=== PATIENT | female | born 1950 | race Caucasian/White ===

== ENCOUNTER 2017-02-27 15:48 | Emergency (ER) | payer OTHER ==
[~2017-02-27] VITALS: Ht 162.6 cm; Wt 79.4 kg
[~2017-02-27 15:48] MED LIST: AMLODIPINE BES2.5 MG ORAL; ASPIR 8181 MG ORAL; CIPROFLOXACIN500 M2 ORAL; CO Q-1010 MG PO; IBUPROFEN600 MG ORAL; LEVAQUIN750 MG ORAL; NEURONTIN600 MG ORAL; NORCO 5-325 TA1 EACH ORAL; PHENAZOPYRIDIN200 MG ORAL; POTASSIUM99 M2 PO; SIMVASTATIN20 MG ORAL
--- NOTE | 2017-02-27 16:02 | Emergency Room Report ---
History of Present Illness General Chief Complaint: Upper Extremity Injury Source: Patient Present Illness HPI Patient presents with complaints of right pain to the base of the thumb Patient reports that she woke up this morning with the swelling and pain Denies any obvious trauma Denies any other fevers or other rash Doesn't recall any flaring of any of her other joints previously is unaware of any arthritis pain is worsened with full extension of the thumb There is some mild erythema to it as well Patient feel some radiation to the mid forearm Allergies: Coded Allergies: PENICILLINS (Verified Allergy, Unknown, 01/28/15) Patient History Past Medical History: see triage record Pertinent Family History: none Reviewed Nursing Documentation: PMH: Agreed, PSxH: Agreed Nursing Documentation-PMH Past Medical History: No History, Except For Hx Cardiac Problems: Yes - parathyroidectomy and hypercalcemia Hx Hypertension: Yes Hx Cancer: Yes - skin, recurrent Review of Systems All Other Systems: negative except mentioned in HPI Physical Exam Vital Signs Date Time Temp Pulse Resp B/P (MAP) Pulse Ox O2 Delivery O2 Flow Rate FiO2 02/27/17 15:54 98.1 68 16 154/96 94 Room Air Sp02 EP Interpretation: reviewed, normal General Appearance: well appearing, no apparent distress Head: normocephalic, atraumatic Eyes: bilateral eye PERRL, bilateral eye EOMI ENT: hearing grossly normal, normal pharynx Neck: full range of motion Musculoskeletal: other - There is some swelling noted to the base of the right thumb, associated with some mild erythema, patient is able to approximate appropriately, neurovascularly intact Neurologic: alert, oriented x3 Skin: other - as above Lymphatic: no adenopathy Procedures Splinting Splinting : Consent: Verbal Location: right hand Pre-Made Type: velcro Splint: thumb spica Pre-Proc Neuro Vasc Exam: normal Post-Proc Neuro Vasc Exam: normal Patient Tolerated: Well Complications: None Medical Decision Making Diagnostic Impression: Primary Impression: Arthralgia Additional Impression: Tendonitis ER Course Multiple differentials considered including but not limited to gout, arthritis, rheumatoid, septic joint Patient's x-ray shows severe arthritic changes at the base of the thumb patient was placed into a splint and requires close followup Other X-Ray Diagnostic Results Other X-Ray Diagnostic Results : X-Ray ordered: right hand # of Views/Limited Vs Complete: 3 View Indication: Pain EP Interpretation: Yes Interpretation: no dislocation, no soft tissue swelling, no fractures, other - arthritic changes Impression: No acute disease Electronically Signed by: Kary Jasmine DO Last Vital Signs Date Time Temp Pulse Resp B/P (MAP) Pulse Ox O2 Delivery O2 Flow Rate FiO2 02/27/17 15:54 98.1 68 16 154/96 94 Room Air Status: improved Disposition: HOME, SELF-CARE Condition: Improved Scripts Ibuprofen* (MOTRIN*) 600 Mg Tablet 600 MG ORAL Q8H Y for For Pain, #20 TAB 0 Refills Prov: KARY JASMINE D.O. 02/27/17 Additional Instructions: Patient is provided with the discharge instructions notified to follow up with primary doctor in the next 2-3 days otherwise return to the er with any worsening symptoms. Please note that this report is being documented using [employer] technology. This can lead to erroneous entry secondary to incorrect interpretation by the dictating instrument. KARY JASMINE D.O. Feb 27, 2017 16:02
[2017-02-27] MEDS ORDERED: IBUPROFEN600 MG ORAL (17:07)
[2017-02-27 17:13] VITALS: BP 155/96
[2017-02-27 17:15] VITALS: BP 155/96
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
== END 2017-02-27 17:15 | disposition home or self-care (01) ==
LOC: EMR 17:15
DX: M79.641 Pain in right hand (principal); M77.9 Enthesopathy, unspecified; Z85.828 Personal history of other malignant neoplasm of skin; I10 Essential (primary) hypertension; Z88.0 Allergy status to penicillin
CPT/HCPCS: 29260; 99283

== ENCOUNTER 2017-04-03 15:00 | Emergency (ER) | payer OTHER ==
[~2017-04-03] VITALS: Ht 162.6 cm; Wt 79.4 kg
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
[2017-04-03 16:08] VITALS: BP 147/91
[2017-04-03] MEDS ORDERED: Excedrin Migraine tab ORAL ONE (17:15)
[2017-04-03] MEDS ORDERED: ZOFRAN4 M3 ORAL (17:23)
[2017-04-03] MEDS ORDERED: IBUPROFEN400 MG ORAL (17:23)
[2017-04-03] MEDS ORDERED: ROBAXIN-750750 MG PO (17:23)
[2017-04-03 17:45] VITALS: BP 145/90
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
== END 2017-04-03 17:47 | disposition home or self-care (01) ==
LOC: EMR 15:35
DX: S16.1XXA Strain of muscle, fascia and tendon at neck level, initial encounter (principal); R51 Headache; Z88.0 Allergy status to penicillin; I10 Essential (primary) hypertension; Z85.828 Personal history of other malignant neoplasm of skin; V49.9XXA Car occupant (driver) (passenger) injured in unspecified traffic accident, initial encounter; Y92.410 Unspecified street and highway as the place of occurrence of the external cause
CPT/HCPCS: 70450; 72125; 99284

== ENCOUNTER 2017-07-06 11:12 | Emergency (ER) | payer OTHER ==
[~2017-07-06] VITALS: Ht 160 cm; Wt 81.6 kg
[~2017-07-06 11:12] MED LIST changes: +IBUPROFEN400 MG ORAL; +ROBAXIN-750750 MG PO; +ZOFRAN4 M3 ORAL
[2017-07-06] MEDS ORDERED: XARELTO10 MG ORAL (12:42)
--- NOTE | 2017-07-06 12:46 | Emergency Room Report ---
History of Present Illness General Chief Complaint: Lower Extremity Injury Source: Patient Present Illness HPI 67-year-old female, presenting with left leg pain, for one week, patient states that she just recently had surgery for her varicose veins. Complaining of redness to her left inner thigh. No fever no chills Allergies: Coded Allergies: PENICILLINS (Verified Allergy, Unknown, 01/28/15) Patient History Past Medical History: see triage record Past Surgical History: none Pertinent Family History: none Last Menstrual Period: na Reviewed Nursing Documentation: PMH: Agreed, PSxH: Agreed Nursing Documentation-PMH Past Medical History: No History, Except For Hx Cardiac Problems: Yes - parathyroidectomy and hypercalcemia Hx Hypertension: Yes Hx Cancer: Yes - skin, recurrent Review of Systems All Other Systems: negative except mentioned in HPI Physical Exam Vital Signs Date Time Temp Pulse Resp B/P (MAP) Pulse Ox O2 Delivery O2 Flow Rate FiO2 07/06/17 11:22 97.8 77 18 130/77 96 Room Air 97.9 Sp02 EP Interpretation: reviewed, normal General Appearance: normal inspection, well appearing, no apparent distress, alert, GCS 15, non-toxic Head: normocephalic, atraumatic Eyes: bilateral eye normal inspection, bilateral eye PERRL, bilateral eye EOMI ENT: normal ENT inspection, normal pharynx, normal voice, moist mucus membranes Neck: normal inspection, full range of motion, supple Respiratory: normal inspection, lungs clear, normal breath sounds, no respiratory distress, no retraction, no wheezing, speaking full sentences, chest symmetrical Cardiovascular #1: normal inspection, regular rate, rhythm, no edema, normal capillary refill Cardiovascular #2: 2+ radial (R), 2+ radial (L) Gastrointestinal: normal inspection, non tender, soft, non-distended, no guarding Musculoskeletal: other - Left inner thigh with palpable varicose veins, tender to palpation, some erythema, along entire leg Neurologic: normal inspection, alert, oriented x3, responsive, motor strength/ tone normal, sensory intact, normal gait, speech normal Psychiatric: normal inspection, judgement/insight normal, memory normal Skin: normal inspection, normal color, no rash, warm/dry, well hydrated, normal turgor Medical Decision Making Diagnostic Impression: Primary Impression: DVT (deep venous thrombosis) Additional Impression: Superficial thrombophlebitis ER Course 67-year-old female, with left leg pain after varicose vein surgery DDX: Superficial thrombophlebitis/DVT Plan: Vascular study ER course: Patient has remained stable during ED stay. Vascular study is positive for a clot along the greater saphenous vein Disposition: Patient is to be discharged to home. Prescriptions given are XARELTO Patient is instructed to not take any blood thinners, including aspirin or Motrin, or any other anticoagulants. Patient is given a 10 day supply, is instructed to follow-up with her doctor for a refill within 5 days of the medication for a total 45 days. Patient is also told to repeat her ultrasound with her doctor Patient is instructed to follow up with their primary care doctor within 5 days. Patient is also told of the significant side effects that can occur with Xarelto including increased bleeding, she verbalized understanding Please note that this Emergency Department Report was dictated using [employer] production supervisor technology software, occasionally this can lead to erroneous entry secondary to interpretation by the dictation equipment CT/MRI/US Diagnostic Results CT/MRI/US Diagnostic Results : Imaging Test Ordered: VASCULAR STUDY Impression thrombosis of greater saphenous vein throughout entire leg Last Vital Signs Date Time Temp Pulse Resp B/P (MAP) Pulse Ox O2 Delivery O2 Flow Rate FiO2 07/06/17 11:22 97.8 77 18 130/77 96 Room Air 97.9 Disposition: HOME, SELF-CARE Condition: Improved Scripts Rivaroxaban (XARELTO*) 10 Mg Tablet 10 MG ORAL DAILY for 10 Days, #10 TAB 0 Refills Prov: Essie Hairston M.D. 07/06/17 Patient Instructions: Deep Vein Thrombosis Additional Instructions: YOU HAVE THROMBOSIS OF YOUR GREATER SAPHENOUS VEIN PLEASE START ANTICOAGULATION PLEASE FOLLOW UP WITH YOUR DOCTOR NO LATER THAN 5 DAYS TO CONTINUE ANTICOAGULATION AND REFILL YOUR MEDICATION AND RE-DO YOUR ULTRASOUND PLEASE DO NOT TAKE ANY OTHER BLOOD THINNERS, ASPIRIN, OR MOTRIN Essie Hairston M.D. Jul 06, 2017 12:45
[2017-07-06 14:11] VITALS: BP 130/77
== END 2017-07-06 13:00 | disposition home or self-care (01) ==
LOC: EMR 11:49
DX: I82.812 Embolism and thrombosis of superficial veins of left lower extremity (principal); I10 Essential (primary) hypertension; Z85.828 Personal history of other malignant neoplasm of skin; Z88.0 Allergy status to penicillin
CPT/HCPCS: 93971; 99284

== ENCOUNTER 2018-06-01 16:12 | Emergency (ER) | payer MEDICARE, OTHER ==
[~2018-06-01] VITALS: Ht 157.5 cm; Wt 72.6 kg
[~2018-06-01 16:12] MED LIST changes: +XARELTO10 MG ORAL
[2018-06-01 16:22] VITALS: BP 149/94
--- NOTE | 2018-06-01 16:32 | NUR ---
ED Nurse Note: Pt came in due to abd pain on and off for months. Denies N/V/D. Pt tates she sometimes have urinary frequency. Pt AAO x4, ambulates with steday gait. VSS.
--- NOTE | 2018-06-01 16:43 | Emergency Room Report ---
History of Present Illness General Chief Complaint: Abdominal Pain Source: Medical Record Present Illness HPI 68-year-old female patient presents the ER complaining of abdominal pain for the past few months. Reports history of similar symptoms in the past, states were intermittent however they have been constant recently. Reports intermittent pain with urinating during this time. Denies blood in urine. Denies vaginal discharge. Reports suprapubic abdominal pain bilaterally and right-sided flank pain. Reports able to pass flatus. Denies blood in stool. Denies vomiting or diarrhea. States has not taking medication for relief of symptoms. Denies fever, chest pain or shortness of breath. Reports history of kidney stones. Allergies: Coded Allergies: PENICILLINS (Verified Allergy, Unknown, 01/28/15) Patient History Past Medical History: see triage record Reviewed Nursing Documentation: PMH: Agreed; PSxH: Agreed Nursing Documentation-PMH Past Medical History: No History, Except For Hx Cardiac Problems: Yes - parathyroidectomy and hypercalcemia Hx Hypertension: Yes Hx Cancer: Yes - skin, recurrent Review of Systems All Other Systems: negative except mentioned in HPI Physical Exam Vital Signs Date Time Temp Pulse Resp B/P (MAP) Pulse Ox O2 Delivery O2 Flow Rate FiO2 06/01/18 16:22 98.2 80 18 149/94 95 Room Air Sp02 EP Interpretation: reviewed, normal General Appearance: well appearing, no apparent distress, alert, GCS 15, non- toxic Head: normocephalic, atraumatic Eyes: bilateral eye normal inspection, bilateral eye PERRL ENT: hearing grossly normal, normal pharynx, no angioedema, normal voice, uvula midline, moist mucus membranes Neck: full range of motion Respiratory: lungs clear, normal breath sounds, no rhonchi, no respiratory distress, no accessory muscle use, no wheezing, speaking full sentences Cardiovascular #1: regular rate, rhythm, no edema Gastrointestinal: normal bowel sounds, soft, no mass, non-distended, no guarding, no rebound, tenderness - Suprapubic bilaterally Genitourinary: no CVA tenderness Musculoskeletal: back normal, digits/nails normal, gait/station normal, normal range of motion, non-tender Neurologic: alert, oriented x3, responsive, motor strength/tone normal, sensory intact Psychiatric: mood/affect normal Skin: no rash Medical Decision Making PA Attestation Dr. Hairston is my supervising Physician whom patient management has been discussed with. Diagnostic Impression: Primary Impression: UTI (urinary tract infection) Additional Impression: Abdominal pain ER Course Pt. presents to the ED c/o abdominal pain and vomiting. Ddx considered but are not limited to UTI, cholelithiasis, cholecystitis, pancreatitis, appendicitis, diverticulitis, constipation, hydronephrosis, nephrolithiasis. Vital signs: are WNL, pt. is afebrile ORDERS: CBC, CMP, Lipase, UA, CT abdomen pelvis, and medication. ER COURSE: CBC and CMP Unremarkable other than mildly elevated BUN. No elevation WBCs or LFTs. Lipase WNL UA shows elevated WBCs and many bacteria, likely UTI, will treat with antibiotics. Take Tylenol for pain symptoms. Discuss results with patient CT abdomen and pelvis No appendicitis, SBO, or diverticulitis. No hydronephrosis or ureteral calculus. Unremarkable gallbladder and pancreas. Dilation of left proximal GSV, incompletely visualized. Discuss results with the patient. Provided patient with copy of results. Instructed patient to followup with PCP and discuss results of report with patient, discuss need for further treatment and referral. DISCHARGE: At this time pt. is stable for d/c to home. Patient resting comfortably, in no acute distress, nontoxic appearing, talking without difficulty. Rx provided to patient. Patient to take medications as instructed Will provide with patient care instructions and any necessary prescriptions. Care plan and follow-up instructions provided. Patient instructed to follow-up with primary care provider in 3 - 5 days. Patient questions asked and answered. Patient reports understanding and agreement to treatment plan. ER precautions given. Patient instructed to return to ER immediately for any new or worsening of symptoms including but not limited to increasing SOB, persistent fever, worsening of pain symptoms, intractable vomiting, blood in stool, urine, and/or emesis. - Please note that this Emergency Department Report was dictated using [employer] developer technology software, occasionally this can lead to erroneous entry secondary to interpretation by the dictation equipment. Labs Test 06/01/18 16:46 06/01/18 17:27 Urine Color Pale yellow Urine Appearance Slightly cloudy Urine pH 5 (4.5-8.0) Urine Specific [place] 1.020 (1.005-1.035) Urine Protein Negative (NEGATIVE) Urine Glucose (UA) Negative (NEGATIVE) Urine Ketones Negative (NEGATIVE) Urine Blood 2+ (NEGATIVE) Urine Nitrite Negative (NEGATIVE) Urine Bilirubin Negative (NEGATIVE) Urine Urobilinogen Normal MG/DL (0.0-1.0) Urine Leukocyte Esterase 1+ (NEGATIVE) Urine RBC 0-2 /HPF (0 - 2) Urine WBC 10-15 /HPF (0 - 2) Urine Squamous Epithelial Cells Few /LPF (NONE/OCC) Urine Bacteria Many /HPF (NONE) White Blood Count 9.0 K/UL (4.8-10.8) Red Blood Count 5.08 M/UL (4.20-5.40) Hemoglobin 13.9 G/DL (12.0-16.0) Hematocrit 42.8 % (37.0-47.0) Mean Corpuscular Volume 84 FL (80-99) Mean Corpuscular Hemoglobin 27.4 PG (27.0-31.0) Mean Corpuscular Hemoglobin Concent 32.5 G/DL (32.0-36.0) Red Cell Distribution Width 12.6 % (11.6-14.8) Platelet Count 248 K/UL (150-450) Mean Platelet Volume 6.9 FL (6.5-10.1) Neutrophils (%) (Auto) 60.2 % (45.0-75.0) Lymphocytes (%) (Auto) 28.7 % (20.0-45.0) Monocytes (%) (Auto) 8.3 % (1.0-10.0) Eosinophils (%) (Auto) 1.9 % (0.0-3.0) Basophils (%) (Auto) 0.8 % (0.0-2.0) Sodium Level 140 MMOL/L (136-145) Potassium Level 3.7 MMOL/L (3.5-5.1) Chloride Level 105 MMOL/L (98-107) Carbon Dioxide Level 24 MMOL/L (21-32) Anion Gap 11 mmol/L (5-15) Blood Urea Nitrogen 20 mg/dL (7-18) Creatinine 0.9 MG/DL (0.55-1.30) Estimat Glomerular Filtration Rate > 60 mL/min (>60) Glucose Level 102 MG/DL (74-106) Calcium Level 9.7 MG/DL (8.5-10.1) Total Bilirubin 0.4 MG/DL (0.2-1.0) Aspartate Amino Transf (AST/SGOT) 16 U/L (15-37) Alanine Aminotransferase (ALT/SGPT) 18 U/L (12-78) Alkaline Phosphatase 117 U/L (46-116) Total Protein 7.9 G/DL (6.4-8.2) Albumin 3.7 G/DL (3.4-5.0) Globulin 4.2 g/dL Albumin/Globulin Ratio 0.9 (1.0-2.7) Lipase 173 U/L (73-393) CT/MRI/US Diagnostic Results CT/MRI/US Diagnostic Results : Imaging Test Ordered: CT abdomen pelvis Impression No appendicitis, SBO, or diverticulitis. No hydronephrosis or ureteral calculus. Unremarkable gallbladder and pancreas. Dilation of left proximal GSV, incompletely visualized. Last Vital Signs Date Time Temp Pulse Resp B/P (MAP) Pulse Ox O2 Delivery O2 Flow Rate FiO2 06/01/18 16:22 98.2 80 18 149/94 95 Room Air Status: improved Disposition: HOME, SELF-CARE Condition: Stable Scripts Cephalexin* (KEFLEX*) 500 Mg Capsule 500 MG ORAL EVERY 12 HOURS, #14 CAP 0 Refills Prov: Deuce Parker 06/01/18 Patient Instructions: Abdominal Pain, Adult, Urinary Tract Infection, Easy-to- Read Additional Instructions: Followup with primary care provider and followup with and./or OBGYN. Drink plenty of fluids. Take medications as directed. Take Tylenol for pain symptoms. Patient questions asked and answered. ER precautions given, patient instructed to return to ER immediately for any new or worsening of symptoms. Deuce Parker Jun 01, 2018 16:43
[2018-06-01] MEDS ORDERED: Isovue-300 100ml vial INJ PRN (16:45)
[2018-06-01] MEDS ORDERED: Acetaminophen 500mg (ES) tab ORAL ONE (16:45)
--- NOTE | 2018-06-01 17:05 | NUR ---
ED Nurse Note: Blood collected and sent.
[2018-06-01] MEDS: Lidocaine HCl 2% Jelly 6ml Tube TOPIC ONE ×2 (17:20→17:21)
--- NOTE | 2018-06-01 17:22 | NUR ---
ED Nurse Note: Lidocaine Jelly returned to pyxis.
[2018-06-01 17:30] LABS: APPEARANCE,URINE SLIGHTLY CLOUDY; BILIRUBIN, URINE NEGATIVE (NEGATIVE); COLOR,URINE PALE YELLOW; GLUCOSE, URINE (UA) NEGATIVE (NEGATIVE); KETONES,URINE NEGATIVE (NEGATIVE); LEUKOCYTE ESTERASE ,URINE 1+ (NEGATIVE); NITRITE,URINE NEGATIVE (NEGATIVE); PH,URINE 5 (4.5-8.0); PROTEIN,URINE NEGATIVE (NEGATIVE); UROBILINOGEN,URINE NORMAL MG/DL (0.0-1.0)
[2018-06-01 17:47] LABS: BASOPHILS % (AUTO) 0.8 % (0.0-2.0); EOSINOPHILS % (AUTO) 1.9 % (0.0-3.0); HEMATOCRIT 42.8 % (37.0-47.0); HEMOGLOBIN 13.9 G/DL (12.0-16.0); LYMPHOCYTES % (AUTO) 28.7 % (20.0-45.0); MEAN CORPUSCULAR VOLUME 84 FL (80-99); MONOCYTES % (AUTO) 8.3 % (1.0-10.0); NEUTROPHILS % (AUTO) 60.2 % (45.0-75.0); PLATELET COUNT 248 K/UL (150-450); RED BLOOD COUNT 5.08 M/UL (4.20-5.40); RED CELL DISTRIBUTION WIDTH 12.6 % (11.6-14.8)
[2018-06-01 17:59] LABS: ANION GAP 11 mmol/L (5-15); BLOOD UREA NITROGEN 20 mg/dL (7-18); CALCIUM 9.7 MG/DL (8.5-10.1); CARBON DIOXIDE 24 MMOL/L (21-32); CHLORIDE 105 MMOL/L (98-107); CREATININE 0.9 MG/DL (0.55-1.30); POTASSIUM 3.7 MMOL/L (3.5-5.1); SODIUM 140 MMOL/L (136-145)
[2018-06-01 18:04] LABS: ALANINE AMINOTRANSFERASE 18 U/L (12-78); ALBUMIN 3.7 G/DL (3.4-5.0); ALBUMIN/GLOBULIN RATIO 0.9 (1.0-2.7); ALKALINE PHOSPHATASE 117 U/L (46-116); ASPARTATE AMINO TRANSFERASE 16 U/L (15-37); BILIRUBIN,TOTAL 0.4 MG/DL (0.2-1.0)
[2018-06-01] MEDS ORDERED: CEPHALEXIN500 MG ORAL (19:02)
[2018-06-01 19:09] VITALS: BP 139/80
--- NOTE | 2018-06-01 19:09 | NUR ---
ED Nurse Note: Pt cleared by Health Care Provider for discharge. DC instructions/prescriptions given and explained to pt and verbalized understanding of teachings. All medical devices such as ID band/IV removed. Pt AAO x4, ambulatory and left with all personal belongings.
--- NOTE | 2018-06-02 17:38 | Diagnostic Imaging Report ---
Clinical Indication: Abdominal pain Technique: No oral contrast utilized, per emergency room physician request IV administration nonionic contrast. Venous phase spiral acquisition obtained through the abdomen and pelvis. Multiplanar reconstructions were generated. Total dose length product 1010.56 mGycm. CTDIvol(s) 17.93 mGy. Dose reduction achieved using automated exposure control Comparison: none Findings: There is colonic diverticulosis. No evidence of diverticulitis. The appendix is not visualized, but no findings to suggest acute appendicitis are evident. No small bowel distention. No free or loculated intraperitoneal gas or fluid. There is a small fat-containing umbilical hernia. The distal esophagus and stomach are unremarkable there is a duodenal diverticulum. The liver, gallbladder, bile ducts, pancreas, spleen, adrenals are unremarkable. The left kidney demonstrates subcentimeter low-attenuation lesions which are too small to characterize, as well as a probable small angiomyolipoma. There may be some parapelvic cysts on the left. No renal or ureter calculi, hydronephrosis, hydroureter. No pelvic mass or adenopathy. A pessary ring is seen within the posterior vagina. The included lung bases demonstrate minimal basilar atelectasis, are otherwise clear. The bones demonstrate degenerative spondylosis changes. There is a a large venous varix in the left groin, presumably involving the greater saphenous vein although incompletely included Impression: No acute process Colonic diverticulosis Varicose dilatation of the downstream left greater saphenous vein, incompletely visualized Subcentimeter low-attenuation left renal lesions, too small to characterize, most likely benign simple cortical cysts Incidental findings as noted, including degenerative spondylosis changes, vaginal pessary, left renal parapelvic cysts, small left renal angiomyolipoma, small fat-containing umbilical hernia, basilar pulmonary atelectatic changes This agrees with the preliminary interpretation provided overnight by [employer] service. The CT scanner at [facility] is accredited by the [employer] and the scans are performed using protocols designed to limit radiation exposure to as low as reasonably achievable to attain images of sufficient resolution adequate for diagnostic evaluation.
== END 2018-06-01 19:09 | disposition home or self-care (01) ==
LOC: EMR 19:03
DX: N39.0 Urinary tract infection, site not specified (principal); I10 Essential (primary) hypertension; Z87.442 Personal history of urinary calculi; Z85.828 Personal history of other malignant neoplasm of skin; E89.0 Postprocedural hypothyroidism; Z88.0 Allergy status to penicillin
CPT/HCPCS: 36415; 74177; 80053; 81003; 83690; 85025; 87086; 87181; 99284; Q9967